=== PATIENT | female | born 2000 | race Asian ===

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

== ENCOUNTER 2022-08-18 17:48 | Emergency (ER) | payer OTHER, SELFPAY ==
--- NOTE | ~2022-08-18 | CT_ITS ---
EXAMINATION: CT abdomen pelvis w con DATE: 08/18/2022 21:33 INDICATION: Right lower quadrant pain. TECHNIQUE: Computed tomography (CT) of the abdomen and pelvis was performed with 100 cc Omnipaque 350 intravenous contrast. The dose-length product was 715.38 mGy-cm. Automated exposure control and iter ative reconstruction technique were employed. COMPARISON: CT dated 07/04/2017 FINDINGS: Lung bases are unremarkable. Heart size normal. No significant pleural or pericardial effus ion. No significant vascular abnormality. No lymphadenopathy. Fatty infiltration of the liver. The sp gretchen, pancreas, adrenal glands and kidneys are unremarkable. No hydronephrosis. Gallbladder is presen t. Normal appendix. Nonobstructive bowel pattern. No free air or free fluid. No lymphadenopathy. No a bnormal pelvic masses or fluid collections. IMPRESSION: 1. No acute abdominal abnormality. Reviewed, dictated and finalized at location A. ER COPPER
[2022-08-18 18:04] VITALS: BP 127/81; PULSE 88; RESP 16; TEMP 36.3; O2SAT 100
[2022-08-18 18:41] LABS: Appearance Urine Clear (Clear); Bilirubin Urine Negative (Negative); Blood Urine 2+ (Negative); Color Urine Yellow (Yellow); Glucose Urine UA Negative (Negative); Ketones Urine Negative (Negative); Leukocyte Esterase Ur Negative LEU/UL (Negative); Nitrate Urine Negative (Negative); Protein Urine Negative (Negative); Specific Grav Ur 1.015 (1.001-1.035); Urobilinogen Urine 0.2 mg/dL (<2.0); pH Urine 5.5 (5.0-9.0)
[2022-08-18 18:45] LABS: Mucus Urine Rare /lpf; Squamous Epithelial Cell Urine Occasional /hpf (Few); WBC Urine 0-3 /hpf
[2022-08-18 18:49] LABS: Add Urine Microscopic? YES
[2022-08-18] MEDS: ACETAMINOPHEN 500 MG TABLET 1000 MG PO (20:48)
[2022-08-18] MEDS: SODIUM CHLORIDE 0.9% IV 2,000 ML 999 ML IV CONT (20:54)
--- NOTE | 2022-08-18 20:56 | ED.GENADULT ---
HPI - General Adult General Chief complaint: Abdominal Pain Stated complaint: abd pain Time Seen by Provider: 08/18/22 19:17 History of Present Illness HPI narrative: this is a 22-year-old female presenting ED with abdominal pain. starting this morning patient started to have sharp stabbing abdominal pain across her lower abdomen. It is worse in the middle that extends the right and left. It is 10 out 10 intensity. It is constant. patient started her menstrual period 2 days ago. She says that she typically gets menstrual cramps but they usually the 1st day of her period and resolved with Motrin. This 1 has not resolved with Motrin. Is associated with decreased appetite and nausea and vomiting. Patient denies fever, chills no chest pain difficulty breathing or diarrhea. She is not sexually active. She denies urinary symptoms or vaginal discharge. Related Data Home Medications Medication Instructions Recorded Confirmed albuterol sulfate 90 mcg/actuation 1 puff inhalation Q4H PRN 03/20/22 aerosol inhaler Allergies Allergy/AdvReac Type Severity Reaction Status Date / Time No Known Allergies Allergy Unknown Verified 03/20/22 14:33 [facility] Past Medical History Medical History Asthma Patient denies significant medical history Surgical History Surgical History No significant past surgical history Social History Social History Smoking status: Never smoker Alcohol intake: never Substance use: never Living arrangements: with family Occupation/Education: student Additional occupation/education comments: [employer] Gender identity (if verbalized by the patient): Female Agree to blood products: Yes Exam Narrative: APPEARANCE: No apparent distress. Head: atraumatic. EYES: EOMI, NOSE: Atraumatic NECK: Trachea midline RESPIRATORY: No increased rate of breathing CARDIOVASCULAR: RRR, ABDOMINAL: Patient has tenderness to palpation across her lower abdomen. There is voluntary guarding. No rebound. MUSCULOSKELETAl: No obvious deformities NEURO: Alert. Moving 4/4 extremities SKIN:: Warm, dry. Normal color PSYCHIATRIC: Normal affect Course Vital Signs Vital signs: Vital Signs Temperature 97.4 F L 08/18/22 18:04 Pulse Rate 88 08/18/22 18:04 Respiratory Rate 16 08/18/22 18:04 Blood Pressure 127/81 08/18/22 18:04 Pulse Oximetry 100 08/18/22 18:04 Oxygen Delivery Room Air 08/18/22 18:04 Temperature 97.4 F L 08/18/22 18:04 Pulse Rate 88 08/18/22 18:04 Respiratory Rate 16 08/18/22 18:04 Blood Pressure 127/81 08/18/22 18:04 Pulse Oximetry 100 08/18/22 18:04 Oxygen Delivery Room Air 08/18/22 18:04 Medical Decision Making MDM Narrative Medical decision making narrative: -Presentation: 22-year-old female presenting to ED with lower abdominal pain. -DDX includes but is not limited to: Severe menstrual cramps, appendicitis, PID, functional abdominal pain -Co-morbidities complicating care: asthma -Social determinants of health: -External Chart Review: -Hx from independent Sources: -Discussion of Management/Consultants: none -Independent interpretation of studies: CBC was within normal limits. Metabolic panel is within normal limits. Urine was not indicative of infection. U preg was negative. CT abdomen pelvis was unremarkable with no evidence of appendicitis. Dx tests considered but not ordered: patient is not sexually active. she she denies vaginal discharge irritation or odor. PID less likely. -Procedures: -Interventions: 15 mg Toradol, a 1000 mg Tylenol, 2 L normal saline -Shared decision making / Disposition: Upon re-evaluation patient is feeling better with Motrin and Toradol. Patient will be discharged with instructions take NSAIDs for her menstrual cramps.
[2022-08-18] MEDS: KETOROLAC 15 MG/ML VIAL (*BKC) IV PUSH (20:59)
[2022-08-18 21:12] LABS: Basophils Percent Auto 0.3 % (0.2-1.2); Eosinophils Percent Auto 0.1 % (0-4.4); Hematocrit 41.9 % (37.0-47.0); Hemoglobin 14.1 g/dL (12.0-15.0); Immature Granulocyte Absolute 0.05 K/mm3 (0.00-0.031); Immature Granulocyte Percent A 0.4 % (0-0.5); Lymphocytes Absolute Auto 1.98 K/mm3 (0.9-3.2); Lymphocytes Percent Auto 15.1 % (18.3-44.2); Mean Corpuscular HGB Conc 33.7 g/dl (32-36); Mean Corpuscular Hemoglobin 29.2 pg (26-34); Mean Corpuscular Volume 86.7 fl (80-100); Mean Platelet Volume 10.4 fl (7.4-10.4); Monocytes Absolute Auto 0.4 K/mm3 (0.1-0.6); Monocytes Percent Auto 3.1 % (2.6-8.5); Neutrophils Absolute Auto 10.6 K/mm3 (1.3-6.7); Platelet Count Result 251 k/mm3 (150-375); Red Blood Count 4.83 M/mm3 (4.2-5.4); Red Cell Distribution Width 13.3 % (11.5-14.5); White Blood Count 13.1 K/mm3 (4.5-10.0)
[2022-08-18 21:21] LABS: Alanine Aminotransferase 34 U/L (6-35); Albumin Level 4.8 g/dL (3.5-5.1); Alkaline Phosphatase 82 U/L (38-126); Anion Gap 7 mmol/L (8-16); Aspartate Amino Transferase 28 U/L (14-36); Bilirubin,Total 0.7 mg/dL (0.2-1.3); Blood Urea Nitrogen 7 mg/dL (7-17); Calcium 9.3 mg/dL (8.4-10.2); Carbon Dioxide 25 mmol/L (22-30); Chloride 105 mmol/L (98-107); Estimated CRCL calculation 155 ml/min; Estimated Glomerular Filt Rate > 60; Glucose 99 mg/dL (65-110); Lipase 74 U/L (23-300); Potassium 3.8 mmol/L (3.4-5.0); Sodium 137 mmol/L (137-145)
[2022-08-18 22:13] VITALS: BP 114/53; PULSE 76; RESP 16; O2SAT 100
[2022-08-18 23:00] VITALS: BP 112/78; PULSE 76; RESP 18; O2SAT 99
== END 2022-08-18 23:02 | disposition home or self-care (01) ==
PROVIDERS: Emergency Medicine; Emergency Provider Emergency Medicine; PCP Internal Medicine
DX: R10.30 Lower abdominal pain, unspecified (principal); J45.909 Unspecified asthma, uncomplicated
CPT/HCPCS: 36415; 74177; 80053; 81001; 81025; 83690; 85025; 96361; 96374; 99284; A9270; J1885; J7030; Q9967

== ENCOUNTER 2025-01-16 07:17 | Emergency (ER) | payer OTHER, SELFPAY ==
--- NOTE | ~2025-01-16 | XR_ITS ---
XR knee LT 3V 01/16/2025 08:02 INDICATION: Left knee pain PROCEDURE: 3 views left knee COMPARISON: No prior studies for comparison. FINDINGS: Fracture, dislocation or subluxation is not identified. No significant joint effusion. The soft tissues appear within normal limits. No foreign bodies are identified. IMPRESSION: 1: NO ACUTE BONE OR JOINT ABNORMALITY IDENTIFIED. Reviewed, dictated and finalized at location B.
[2025-01-16 07:20] VITALS: BP 136/81; PULSE 91; RESP 18; TEMP 36.9; O2SAT 99
--- OUTSIDE RECORDS SUMMARY | 2025-01-16 07:20 | XMS_ITS | Clinical Summary ---
Author Organization [facility] Address [address] [place] [address] Care Team Providers Care Student Support Counselor Name Role Phone Roverto Scherer DO Primary Care Provider Source Comments [facility],non-owned Affiliates and Associated Physician Practices is amultiple site organization consisting of ambulatory clinics and hospital sitesin [place], [place], [place] and [place]. This disclosure is being madepursuant to the Care Everywhere program and may not contain all information available regarding this patient. Last updated 18.[facility] Allergies No known active allergies Medications * Be aware that medications may not be up to date on this document. Alwaysverify current medications with the patient. doxycycline hyclate 50 MG Take 50 mg by mouth 2 times daily 60 tablet 1 9 Active Additional Information Patient not taking.Reported on 02/07/2022 adapalene (DIFFERIN) 0.1 % cream Apply to affected area at bedtime 45 g 1 9 Active Additional Information Patient not taking.Reported on 02/07/2022 albuterol HFA (VENTOLIN HFA) 108 (90 Base) MCG/ACT inhaler Inhale 2 (two) puffs by mouth every 4 hours as needed 8 g 2 Active neomycin-polymy chip-dexameth (Maxitrol) ophthalmic suspension Instill 1 (one) drop into left eye 3 times daily 5 mL 2 Active Active Problems Problem Noted Date Diagnosed Date Acute nonintractable headache 09/14/2017 Assessment & Plan (09/14/2017 9:42 AM CDT): Assessment: Adeola Wood is a 17 y.o. female who presents for evaluation for semi-acute onset of headaches beginning and ending in August that also coincided with acute onset abdominal pain that was believed to be due to constipation related symptoms. Given headaches were associated with abdominal pain and went away more or less at the time abdominal pain resolved, we don't recommend any further intervention at this time. Headaches could be migraine in nature, though generalized location of headaches and photophobia suggests this may not be the case. In any case there are aspects of headache hygiene that could be improved to reduce risk of further headaches. Adeola can follow up with our office as needed for worsening symptoms, or if new symptoms develop: Plan: - Keep a headache diary as this can help identify certain triggers and patterns to headaches. - Maintain an active lifestyle with at least 30 minutes of exercise a day. - Eat a healthy diet and do not skip any meals. - Drink plenty of water and try to avoid caffeine regularly. About 8 glasses of water or 64 oz a day is a good goal. - Maintain a good sleep routine and try to avoid distractions before bedtime such as watching TV, using a tablet/phone, or being on the computer. Try to put these away at least 30 minutes prior to a scheduled bedtime. Try to get at least 8-10 hours of sleep a night. - Do not use pain medication (whether prescribed or over the counter) more than 3-4 times a week as this can sometimes worsen headaches in the fdc. It is OK to use your sumatriptan, but would prefer to use NSAIDs (such as naproxen [Aleve], tylenol, or ibuprofen). - Follow up as needed for any acute worsening of headaches. Alopecia 04/09/2014 BMI (body mass index), pedia tric, 85% to less than 95% for age 0612/14/2012 Immunizations Immunization Administration Dates Next Due [employer] primary monoval ent 12+ yr 0.3mL Purple cap 10/02/2020 DTaP VACCINE IM (6wk-6yrs) 02/20/2006,,2002,03/30,2002 HEP A PEDS 2 DOSE 08/08/2011,02/21/2008 HEP B VACCINE, PED/ADOL 08/08/2011,07/13,05/09/2004,04/07 HIB BOOSTER 04/07/2004 Human Papilloma Virus Ammon valent Vaccine 12/12/2014,08/08/2014,05/25/2014 INFLUENZA VACCINE 08/01/2008,06/20/2008 INFLUENZA VACCINE, QUADR. (A FLURIA, FLUZONE QUADRIVALENT; 6MO+) (IIV4) 05/15/2017 MENINGOCOCCAL ACWY (MCV4P) VAC IM 02/02/2018, MMR 02/20/2006,12/20/2003 POLIO IPV 02/20/2006, 2,2002,02/26 PPD 02/20/2006 TDAP (7yrs+) 01/18/2012 VARICELLA 02/29/2008,03/29/2004 Family History Medical History Relation Name Comments Allergies Neg Hx Asthma Neg Hx Eczema Neg Hx Social History Tobacco Use Types Packs/Day Years Used Date Smoking Tobacco: Never Smokeless Tobacco: Never Alcohol Use Standard Drinks/Week Comments Never 0 (1 standard drink = 0.6 oz pur e alcohol) AUDIT-C Answer Date Recorded Q1: How often do you have a drink containing alc ohol? 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 Gender Identity Not on file Sexual Orientation Not on file Last Filed Vital Signs Vital Sign Reading Time Taken Comments Blood Pressure 123/72 10/23/2020 9:14 AM CDT Pulse 74 10/23/2020 9:14 AM CDT Temperature 36.1 C (97 F) 02/07/2022 3:54 PM CDT Respiratory Rate 16 02/26/2013 1:07 PM CDT Oxygen Saturation 99% 05/15/2017 9:12 AM AGRICULTURE RESEARCH DIRECTOR Inhaled Oxygen Concentration - - Weight 84.5 kg (186 lb 6 oz) 02/07/2022 3:54 PM CDT Height 162.6 cm (5' 4) 10/23/2020 9:14 AM CDT Body Mass Index 31.99 10/23/2020 9:14 AM CDT Plan of Treatment Health Maintenance Due Date Last Done Comments HIV SCREENING 2017 MENINGOCOCCAL (Group B) VACCINE SHARED DECISION-MAKING (1 of 2 - Standard) 2018 HEPATITIS C SCREENING 01/05/2020 CHLAMYDIA/GONORRHEA SCREENING 10/23/2021 10/23/2020 DTAP/TDAP/TD VACCINES (7 - Td or Tdap) 01/17/2022 01/18/2012, 02/20/2006, 04/07/2004, Additional history exists PAP SMEAR 2023 COVID-19 VACCINE (2 - season) 2024 10/02/2020 DEPRESSION SCREENING 07/02/2024 INFLUENZA VACCINE (#1) 2025 7, 08/01/2008, 06/20/2008 ZOSTER VACCINE (1 of 2) 01/10/2052 HIB VACCINE Completed 04/07/2004 HEPATITIS B VACCINE Completed 08/08/2011, 07/13/2004, 05/09/2004, Additional history exists HPV VACCINE Completed 12/12/2014, 12/2014, 05/25/2014 MENINGOCOCCAL GROUPS A/C/Y/W VACCINE Completed 02/02/2018, 12/12/2014 PNEUMOCOCCAL VACCINE Aged Out No long er eligible based on patient's age to complete this topic Goals Goal Patient Goal Type Associated Problems Recent Progress Patient-Stated? Author [facility] Lifestyle: Use safety retraint in car Lifestyle On track( 021 9:17 AM CDT) Rosanna Belle, kiln firer Procedure Name Priority Date/Time Associated Diagnosis Comments VAGINITIS YOSEPH (CT NG TRICH HSV1+2) Routine 10/23/2020 12:26 PM CDT Sore lip from Last 3 Months or Most Recently Relevant to Health Maintenance Results * VAGINITIS YOSEPH (CT NG TRICH HSV1+2) (10/23/2020 12:26 PM CDT) Chlamydia trachomatis YOSEPH Negative Negative [facility] ACCOUNT BILL GC DNA Probe Negative Negative [facility]OUNT [facility]ILL Trichomonas vaginalis by YOSEPH Negative Negative [facility] ACCOUNT [facility]ILL Herpes Simplex Virus 1 YOSEPH Negative Negative [facility] ACCOUNT BILL Herpes Simplex Virus 2 YOSEPH Negative Negative [facility] ACCOUNT BILL Blood ENTIRE VAGINA / Unknown 10/23/2020 12:26 PM CDT 10/23/2020 Narrative Resulting Agency Comment Lab Testing performed at: [facility] [address] [id number] Roverto Scherer DO LAB - MICROBIOLOGY RALPH RAMIREZ Final Result [facility] ACCOUNT BILL [id number] [place] [id number] from Last 3 Months or Most Recently Relevant to Health Maintenance Insurance [facility] * Guarantor: ISRAELDARLENEPetey Account Type Relation to Patient Date of Phone Billing Address Personal/Family [address] [place] [address] Care Teams Student Support Counselor Relationship Specialty Start Date End Date Roverto Scherer DO PCP - General Pediatrics 08/08/17
--- OUTSIDE RECORDS SUMMARY | 2025-01-16 07:20 | XMS_ITS | Encounter Summary ---
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 Author [facility] Lifestyle: Use safety retraint in car Lifestyle On track( 021 9:17 AM CDT) No Rosanna Pa, RN documented as of this encounter Visit Diagnoses Not on filedocumented in this encounter Care Teams Cafeteria Counter Attendant Relationship Specialty Start Date End Date Roverto Scherer DO PCP - General Pediatrics 08/08/17 documented as of this encounter
--- NOTE | 2025-01-16 07:49 | PC.NURSE ---
Patient to radiology at this time
--- OUTSIDE RECORDS SUMMARY | 2025-01-16 07:50 | XMS_ITS | Clinical Summary ---
Author Organization [facility] Address [address] [place] [address] Care Team Providers Care Assistant Secretary Name Role Phone Roverto Scherer DO Primary Care Provider Source Comments [facility],non-owned Affiliates and Associated Physician Practices is amultiple site organization consisting of ambulatory clinics and hospital sitesin [place], [place], [place] and [place]. This disclosure is being madepursuant to the Care Everywhere program and may not contain all information available regarding this patient. Last updated 18.[facility] Allergies No known active allergies Medications * [...] this can sometimes worsen headaches in the longterm. It is OK to use your sumatriptan, but would prefer to use NSAIDs (such as naproxen [Aleve], tylenol, or ibuprofen). - Follow up as needed for any acute worsening of headaches. 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 Inhaled Oxygen Concentration - - Weight 84.5 [...] track( 021 9:17 AM CDT) 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 Belle, lumber cutter Procedure Name Priority Date/Time Associated Diagnosis Comments [...] Agency Comment Lab Testing performed at: [facility] [address] [id number] Roverto Scherer DO LAB - MICROBIOLOGY RALPH RAMIREZ Final Result [facility] ACCOUNT BILL [id number] [place] [address] from Last 3 Months or Most Recently Relevant to Health Maintenance Insurance [facility] Address: [facility] [address] [place] [address] * Guarantor: ISRAELDARLENEPetey Account Type Relation to Patient Date of Phone Billing Address Personal/Family [address] [place] [address] Care Teams Assistant Secretary Relationship Specialty Start Date End Date Roverto Scherer DO PCP - General Pediatrics 08/08/17
--- OUTSIDE RECORDS SUMMARY | 2025-01-16 07:50 | XMS_ITS | Encounter Summary ---
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
--- NOTE | 2025-01-16 07:58 | ED.GENADULT ---
HPI - General Adult General Chief complaint: Extremity Injury, Lower Stated complaint: left knee pain Time Seen by Provider: 01/16/25 07:27 History of Present Illness HPI narrative: This is a 25 year female presenting with left knee pain. Patient says that she woke this morning and is now unable to extend her knee fully. Right before full extension she starts to develop pain on the inside of her knee. Patient does not remember any traumatic events. There is no warmth or swelling to the leg. No swelling of the lower extremity. Patient was on a StairMaster 2 days ago did not feel like she injured herself that time. No loss of sensation or function to foot. Related Data Home Medications ?Medication ?Instructions ?Recorded ?Confirmed ?Last Taken ?Type albuterol sulfate 90 mcg/actuation 1 puff inhalation Q4H PRN 03/20/22 08/23/23 Unknown History aerosol inhaler Allergies Allergy/AdvReac Type Severity Reaction Status Date / Time No Known Allergies Allergy Unknown Verified 08/23/23 13:51 [facility] Past Medical History Medical History Asthma Patient denies significant medical history Surgical History Surgical History No significant past surgical history Family History Family History Mother Multiple sclerosis Social History Social History Smoking status: Never smoker Alcohol intake: never Substance use: never Living arrangements: with family Occupation/Education: student Additional occupation/education comments: [employer] Gender identity (if verbalized by the patient): Female Agree to blood products: Yes Exam Narrative: APPEARANCE: No apparent distress. Head: atraumatic. EYES: EOMI, NOSE: Atraumatic NECK: Trachea midline RESPIRATORY: No increased rate of breathing CARDIOVASCULAR: RRR, ABDOMINAL: Non-distended MUSCULOSKELETAl: Focal exam of the left lower extremity revealed no obvious deformity or swelling to the knee. No overlying skin changes. No warmth to the joint. No pain on movement w/ flexion. Unable to extend past 40 degrees of flexion, pulses intact. ankle strength/mobility intact. NEURO: Alert. Moving 4/4 extremities SKIN:: Warm, dry. Normal color PSYCHIATRIC: Normal affect Course Vital Signs Vital signs: Vital Signs Temperature 98.4 F 01/16/25 07:20 Pulse Rate 91 01/16/25 07:20 Respiratory Rate 18 01/16/25 07:20 Blood Pressure 136/81 01/16/25 07:20 Pulse Oximetry 99 01/16/25 07:20 Temperature 98.4 F 01/16/25 07:20 Pulse Rate 91 01/16/25 07:20 Respiratory Rate 18 01/16/25 07:20 Blood Pressure 136/81 01/16/25 07:20 Pulse Oximetry 99 01/16/25 07:20 Medical Decision Making MDM Narrative Medical decision making narrative: -Course: 25-year-old female presenting with pain on extension of her knee. No traumatic injury although she was exercised on a StairMaster 2 days ago. X-ray was negative for bony injury. Patient was given crutches. She can follow-up with orthopedics. Given return precautions. -DDX includes but is not limited to: Internal derangement of the knee, knee effusion, muscle strain, septic joint Vital Signs Vital Signs: Vital Signs Temperature 98.4 F 01/16/25 07:20 Pulse Rate 91 01/16/25 07:20 Respiratory Rate 18 01/16/25 07:20 Blood Pressure 136/81 01/16/25 07:20 Pulse Oximetry 99 01/16/25 07:20 Temperature 98.4 F 01/16/25 07:20 Pulse Rate 91 01/16/25 07:20 Respiratory Rate 18 01/16/25 07:20 Blood Pressure 136/81 01/16/25 07:20 Pulse Oximetry 99 01/16/25 07:20 Discharge Plan Discharge Clinical Impression: Acute knee pain Patient Disposition: Home Condition: Stable Instructions: Antibiotic Form, Knee Pain (ED) Additional Instructions: You were seen in the emergency department for knee pain. Please use crutches as needed. Use Motrin Tylenol Robaxin for pain control. Please follow-up with the orthopedic surgeon listed below. If you develop severe pain or any new symptoms return to the ED. Patient Language: Sinhala Prescriptions: New acetaminophen 500 mg tablet 1,000 mg PO TID PRN (Reason: venice) 7 Days Qty: 42 0RF ibuprofen 800 mg tablet 800 mg PO TID PRN (Reason: pain) 7 Days Qty: 21 0RF methocarbamol 750 mg tablet 1,500 mg PO TID Qty: 42 0RF No Action albuterol sulfate 90 mcg/actuation HFA aerosol inhaler 1 puff inhalation Q4H PRN acetaminophen 500 mg tablet 1,000 mg PO TID PRN (Reason: venice) 7 Days Qty: 42 0RF Follow-up/Referrals: Jesica Juares, SENIOR MICROSTRATEGY DEVELOPER-C [Primary Care Provider] - Korey Carter MD [Physician] - 1 Week (knee pain )
[2025-01-16] MEDS: IBUPROFEN 400 MG TABLET 800 MG PO (08:02)
[2025-01-16 08:03] VITALS: BP 118/71; PULSE 87; RESP 18; O2SAT 98
[2025-01-16 08:26] VITALS: PULSE 84; RESP 17; O2SAT 99
== END 2025-01-16 08:29 | disposition home or self-care (01) ==
PROVIDERS: Emergency Provider Emergency Medicine; PCP Clinical Nurse Specialist
DX: M25.562 Pain in left knee (principal); J45.909 Unspecified asthma, uncomplicated
CPT/HCPCS: 73562; 99283; A9270